=== PATIENT | male | born 1940 | race Two or more races ===

== ENCOUNTER 2016-09-15 07:00 | Day surgery (SDC) | payer MEDICARE, MEDICAID ==
[~2016-09-15] VITALS: Ht 167.6 cm; Wt 69.1 kg
[~2016-09-15 07:00] MED LIST: FentaNYL CITRATE-PF 100 MCG/2 ML VIAL IVP ONE; MIDAZOLAM HCL 2 MG/2 ML VIAL IVP ONE
[2016-09-15] MEDS ORDERED: DICLOFENAC SODIUM 0.1% 2.5 ML OPHTHALMIC SOLUTION ONE (07:17)
[2016-09-15] MEDS ORDERED: BESIFLOXACIN HCL 0.6% 5 ML OPHTHALMIC SUSPENSION ONE (07:17)
[2016-09-15] MEDS ORDERED: TROPICAMIDE 1% 2 ML OPHTHALMIC SOLUTION ONE (07:17)
[2016-09-15] MEDS ORDERED: RINGERS SOLUTION,LACTATED 500 ML IV ONE ×2 (07:18→07:30)
[2016-09-15] MEDS ORDERED: PHENYLEPHRINE HCL 2.5% 2 ML OPHTHALMIC SOLUTION ONE (07:18)
[2016-09-15] MEDS ORDERED: DICLOFENAC SODIUM 0.1% 2.5 ML OPHTHALMIC SOLUTION OD ONE (07:30)
[2016-09-15] MEDS ORDERED: BESIFLOXACIN HCL 0.6% 5 ML OPHTHALMIC SUSPENSION OD ONE (07:30)
[2016-09-15] MEDS ORDERED: ATOR10TA84 PO (07:52)
[2016-09-15] MEDS ORDERED: FINA5TAB41 PO (07:52)
[2016-09-15] MEDS ORDERED: TAMS0.4C32 PO (07:52)
[2016-09-15] MEDS ORDERED: PIOG15TA13 PO (07:52)
[2016-09-15 08:02] LABS: GLUCOSE,POINT OF CARE 110 MG/DL (70-110)
[2016-09-15] MEDS: PHENYLEPHRINE HCL 2.5% 2 ML OPHTHALMIC SOLUTION OD SCH ×2 (08:02→08:11)
[2016-09-15] MEDS: TROPICAMIDE 1% 2 ML OPHTHALMIC SOLUTION OD SCH ×2 (08:03→08:11)
[2016-09-15] MEDS ORDERED: HYALURONATE SOD/CHONDROITIN SOD 0.5 ML VIAL IO ONE (17:29)
[2016-09-15] MEDS ORDERED: TETRACAINE HCL VISCOUS 0.5% 0.6 ML OPHTHALMIC SOLUTION OD ONE (17:29)
[2016-09-15] MEDS ORDERED: POVIDONE-IODINE 15 ML SOLUTION UD TP ONE (17:29)
[2016-09-15] MEDS ORDERED: DEXAMETHASONE SOD PHOS 4 MG/ML VIAL IVP ONE (17:29)
[2016-09-15] MEDS ORDERED: LIDOCAINE HCL/PF 1% 2 ML VIAL IM ONE (17:29)
[2016-09-15] MEDS ORDERED: HYALURONATE SODIUM 12 MG/ML 0.8 ML SYRINGE IO ONE (17:29)
== END 2016-09-15 10:30 | disposition home or self-care (01) ==
LOC: SURGERY 07:00
PROVIDERS: ATTEND Specialist
DX: E11.36 Type 2 diabetes mellitus with diabetic cataract (principal); H25.011 Cortical age-related cataract, right eye; M19.90 Unspecified osteoarthritis, unspecified site; C61 Malignant neoplasm of prostate; Z98.890 Other specified postprocedural states
CPT/HCPCS: 82962; 93005; J1100; J2250; J3010; J3490; J7120

== ENCOUNTER 2017-02-23 07:26 | Day surgery (SDC) | payer MEDICARE, MEDICAID ==
[~2017-02-23] VITALS: Ht 167.6 cm; Wt 69.0 kg
[~2017-02-23 07:26] MED LIST changes: +ATOR10TA84 PO; +DICLOFENAC SODIUM 0.1% 2.5 ML OPHTHALMIC SOLUTION ONE; +FINA5TAB41 PO; -FentaNYL CITRATE-PF 100 MCG/2 ML VIAL IVP ONE; -MIDAZOLAM HCL 2 MG/2 ML VIAL IVP ONE; +MOXIFLOXACIN HCL 0.5% 3 ML OPHTHALMIC SOLUTION ONE; +PHENYLEPHRINE HCL 2.5% 2 ML OPHTHALMIC SOLUTION ONE; +PIOG15TA6 PO; +RINGERS SOLUTION,LACTATED 0 ML IV ONE; +TAMS0.4C32 PO; +TROPICAMIDE 1% 2 ML OPHTHALMIC SOLUTION ONE
[2017-02-23] MEDS ORDERED: TETRACAINE HCL VISCOUS 0.5% 5 ML OPHTHALMIC SOLUTION OS ONE (07:27)
[2017-02-23] MEDS ORDERED: DICLOFENAC SODIUM 0.1% 2.5 ML OPHTHALMIC SOLUTION ONE (07:27)
[2017-02-23] MEDS ORDERED: MOXIFLOXACIN HCL 0.5% 3 ML OPHTHALMIC SOLUTION ONE (07:27)
[2017-02-23] MEDS ORDERED: DEXAMETHASONE SOD PHOS 4 MG/ML VIAL IVP ONE (07:27)
[2017-02-23] MEDS ORDERED: FentaNYL CITRATE-PF 100 MCG/2 ML VIAL IVP ONE (07:27)
[2017-02-23] MEDS ORDERED: POVIDONE-IODINE 10% 15 ML SOLUTION UD TP ONE (07:27)
[2017-02-23] MEDS ORDERED: HYALURONATE SODIUM 12 MG/ML 0.8 ML SYRINGE IO ONE (07:27)
[2017-02-23] MEDS ORDERED: HYALURONATE SOD/CHONDROITIN SOD 0.5 ML VIAL IO ONE (07:27)
[2017-02-23] MEDS ORDERED: LIDOCAINE HCL/PF 1% 2 ML VIAL IM ONE (07:27)
[2017-02-23] MEDS ORDERED: MIDAZOLAM HCL 2 MG/2 ML VIAL IVP ONE (07:27)
[2017-02-23] MEDS ORDERED: TROPICAMIDE 1% 2 ML OPHTHALMIC SOLUTION ONE (07:27)
[2017-02-23] MEDS ORDERED: RINGERS SOLUTION,LACTATED 500 ML IV ONE ×2 (07:28→07:30)
[2017-02-23] MEDS ORDERED: PHENYLEPHRINE HCL 2.5% 2 ML OPHTHALMIC SOLUTION ONE (07:28)
[2017-02-23] MEDS ORDERED: MOXIFLOXACIN HCL 0.5% 3 ML OPHTHALMIC SOLUTION OS ONE (07:30)
[2017-02-23] MEDS ORDERED: DICLOFENAC SODIUM 0.1% 2.5 ML OPHTHALMIC SOLUTION OS ONE (07:30)
[2017-02-23] MEDS: TROPICAMIDE 1% 2 ML OPHTHALMIC SOLUTION OS SCH ×2 (08:34→08:38)
[2017-02-23] MEDS: PHENYLEPHRINE HCL 2.5% 2 ML OPHTHALMIC SOLUTION OS SCH ×2 (08:34→08:38)
== END 2017-02-23 11:00 | disposition home or self-care (01) ==
LOC: SURGERY 07:26
PROVIDERS: ATTEND Specialist
DX: H25.012 Cortical age-related cataract, left eye (principal); E11.22 Type 2 diabetes mellitus with diabetic chronic kidney disease; N18.9 Chronic kidney disease, unspecified; M19.90 Unspecified osteoarthritis, unspecified site; Z98.890 Other specified postprocedural states; Z85.46 Personal history of malignant neoplasm of prostate
CPT/HCPCS: 66984; 93005; C1780; J1100; J2250; J3010; J3490 ×2; J7120